=== PATIENT | male | born 1950 | race Caucasian/White ===

== ENCOUNTER → 2017-09-25 | Outpatient (CLI) | payer MEDICARE ==
[~2017-09-25] MED LIST: CYAN500; FINA5; FISH OIL 1,0001 EAC2; IRBHYD150 PO; Levitra20 MG PO; MAGCHL64ER; MELA3; METO50ER PO; Saw Palmetto160 MG; TAMS.4ER; VITAMIN D5000 UNIT
[2017-09-25 14:45] LABS: Bilirubin, Urine Neg (Neg); Blood, Urine Neg (Neg); Glucose Qualitative, Urine Neg (Neg); Ketones, Urine Neg (Neg); Leukocyte Esterase, Urine 1+ (Neg); Nitrite, Urine Pos (Neg); Protein, Urine Neg (Neg); Specific Gravity, Urine 1.015 (1.003-1.022); Urobilinogen, Urine NORM (Normal)
[2017-09-25 15:02] LABS: Amorphous Heavy (0-Heavy); Appearance, Urine Hazy (Clear); Bacteria Many /hpf; Color, Urine Yellow (P-Yellow); Red Blood Cells, Urine Not Seen /hpf (0-2); Squamous Epithelial Cells Few /hpf (Few)
== END | disposition home or self-care (01) ==
LOC: LAB 14:21
PROVIDERS: Urology
DX: N39.0 Urinary tract infection, site not specified (principal); N30.20 Other chronic cystitis without hematuria
CPT/HCPCS: 81001; 87077; 87086; 87186

== ENCOUNTER 2017-12-21 07:01 | Day surgery (SDC) | payer MEDICARE ==
[~2017-12-21] VITALS: Ht 185.4 cm; Wt 103.5 kg
[~2017-12-21 07:01] MED LIST changes: -CYAN500; -FINA5; -FISH OIL 1,0001 EAC2; -MAGCHL64ER; -MELA3; -Saw Palmetto160 MG; -TAMS.4ER; -VITAMIN D5000 UNIT
[2017-12-21] MEDS ORDERED: FINA5 (07:36)
[2017-12-21] MEDS ORDERED: TAMS.4ER (07:36)
[2017-12-21] MEDS ORDERED: MAGCHL64ER (07:37)
[2017-12-21] MEDS ORDERED: Saw Palmetto160 MG (07:38)
[2017-12-21] MEDS ORDERED: VITAMIN D5000 UNIT (07:38)
[2017-12-21] MEDS ORDERED: MELA3 (07:38)
[2017-12-21] MEDS ORDERED: FISH OIL 1,0001 EAC2 (07:38)
[2017-12-21] MEDS ORDERED: CYAN500 (07:38)
== END 2017-12-21 09:07 | disposition home or self-care (01) ==
LOC: ORSCSDS 07:01
PROVIDERS: Surgery
PROC: 0DJD8ZZ Inspection of Lower Intestinal Tract, Via Natural or Artificial Opening Endoscopic (ICD-10-PCS; principal; 2017-12-21 08:00)
PROC: 0DB68ZX Excision of Stomach, Via Natural or Artificial Opening Endoscopic, Diagnostic (ICD-10-PCS; principal; 2017-12-21 08:00)
PROC: 0DB48ZX Excision of Esophagogastric Junction, Via Natural or Artificial Opening Endoscopic, Diagnostic (ICD-10-PCS; principal; 2017-12-21 08:00)
DX: K21.9 Gastro-esophageal reflux disease without esophagitis (principal); K31.7 Polyp of stomach and duodenum; Z86.010 Personal history of colon polyps; K57.30 Diverticulosis of large intestine without perforation or abscess without bleeding; Z80.0 Family history of malignant neoplasm of digestive organs; Z79.899 Other long term (current) drug therapy
CPT/HCPCS: 88305; 88341; 88342; J0330; J1980; J2405; J7120

== ENCOUNTER → 2021-10-12 | Outpatient (CLI) | payer MEDICARE ==
[~2021-10-12] MED LIST changes: +CYAN500; +FINA5; +FISH OIL 1,0001 EAC2; +MAGCHL64ER; +MELA3; +Saw Palmetto160 MG; +TAMS.4ER; +VITAMIN D5000 UNIT
[2021-10-12 14:23] LABS: Source, Urine Clean Catch
[2021-10-12 18:54] LABS: Bilirubin, Urine Neg (Neg); Blood, Urine 2+ (Neg); Glucose Qualitative, Urine Neg (Neg); Ketones, Urine Neg (Neg); Leukocyte Esterase, Urine 3+ (Neg); Nitrite, Urine Pos (Neg); Protein, Urine 2+ (Neg); Specific Gravity, Urine 1.025 (1.003-1.022); Urobilinogen, Urine NORM (Normal)
[2021-10-12 19:05] LABS: Appearance, Urine Hazy (Clear); Color, Urine Amber (P-Yellow)
[2021-10-12 19:06] LABS: Amorphous Light (0-Heavy); Bacteria Many /hpf; Squamous Epithelial Cells Few /hpf (Few)
== END ==
LOC: LAB SHORT 14:04
PROVIDERS: Urology
DX: N39.0 Urinary tract infection, site not specified (principal)
CPT/HCPCS: 81001

== ENCOUNTER 2021-12-30 01:04 | Day surgery (SDC) | payer MEDICARE | END 2021-12-30 16:08 | disposition home or self-care (01) | LOC: ATC 01:04 | DX: N41.1 Chronic prostatitis (principal) | CPT/HCPCS: 96374; J0696 ==

== ENCOUNTER 2022-01-01 15:55 | Day surgery (SDC) | payer MEDICARE ==
[2022-01-04] MEDS ORDERED: CEFTRIAXONE2 G1 IV (16:41)
== END 2022-01-01 16:05 | disposition home or self-care (01) ==
LOC: ATC 15:55
DX: N41.1 Chronic prostatitis (principal); I10 Essential (primary) hypertension
CPT/HCPCS: 96374; J0696

== ENCOUNTER 2022-01-02 15:52 | Day surgery (SDC) | payer MEDICARE | END 2022-01-02 16:02 | disposition home or self-care (01) | LOC: ATC 15:52 | DX: N41.1 Chronic prostatitis (principal) | CPT/HCPCS: J0696 ==

== ENCOUNTER 2022-01-03 00:49 | Day surgery (SDC) | payer MEDICARE ==
[2022-01-04] MEDS ORDERED: CEFTRIAXONE2 G1 IV (16:41)
== END 2022-01-03 16:07 | disposition home or self-care (01) ==
LOC: ATC 00:49
DX: N41.1 Chronic prostatitis (principal); I10 Essential (primary) hypertension
CPT/HCPCS: 96374; J0696

== ENCOUNTER 2022-01-05 03:56 | Day surgery (SDC) | payer MEDICARE ==
[~2022-01-05 03:56] MED LIST changes: +CEFTRIAXONE2 G1 IV
== END 2022-01-05 16:05 | disposition home or self-care (01) ==
LOC: ATC 03:56
DX: N41.1 Chronic prostatitis (principal); I10 Essential (primary) hypertension; Z85.820 Personal history of malignant melanoma of skin; Z79.899 Other long term (current) drug therapy
CPT/HCPCS: 96374; J0696

== ENCOUNTER 2022-01-06 01:38 | Day surgery (SDC) | payer MEDICARE | END 2022-01-06 16:05 | disposition home or self-care (01) | LOC: ATC 01:38 | DX: N41.1 Chronic prostatitis (principal); I10 Essential (primary) hypertension; Z87.440 Personal history of urinary (tract) infections; Z85.820 Personal history of malignant melanoma of skin | CPT/HCPCS: 96374; J0696 ==

== ENCOUNTER 2022-01-07 01:03 | Day surgery (SDC) | payer MEDICARE | END 2022-01-07 16:13 | disposition home or self-care (01) | LOC: ATC 01:03 | DX: N41.1 Chronic prostatitis (principal); I10 Essential (primary) hypertension | CPT/HCPCS: 96374; J0696 ==

== ENCOUNTER 2022-01-08 15:48 | Day surgery (SDC) | payer MEDICARE | END 2022-01-08 16:00 | disposition home or self-care (01) | LOC: ATC 15:48 | DX: N41.1 Chronic prostatitis (principal); I10 Essential (primary) hypertension; Z79.899 Other long term (current) drug therapy | CPT/HCPCS: 96374; J0696 ==

== ENCOUNTER 2022-01-09 15:54 | Day surgery (SDC) | payer MEDICARE | END 2022-01-09 16:04 | disposition home or self-care (01) | LOC: ATC 15:54 | DX: N41.1 Chronic prostatitis (principal); I10 Essential (primary) hypertension; Z79.899 Other long term (current) drug therapy | CPT/HCPCS: 96374; J0696 ==

== ENCOUNTER 2022-01-10 01:10 | Day surgery (SDC) | payer MEDICARE ==
[2022-01-10 16:32] LABS: BASOPHILS ABSOLUTE AUTO 0.04 K/mm3 (0.00-0.23); BASOPHILS PERCENT AUTO 1 % (0-2); EOSINOPHILS ABSOLUTE AUTO 0.08 K/mm3 (0.00-0.68); EOSINOPHILS PERCENT AUTO 1 % (0-6); Hematocrit 39.6 % (37.0-53.0); Hemoglobin 14.1 g/dL (13.5-17.5); IMMATURE GRAN ABSOLUTE AUTO 0.02 K/mm3 (0.00-0.10); IMMATURE GRAN PERCENT AUTO 0 % (0-1); LYMPHOCYTES ABSOLUTE AUTO 1.44 K/mm3 (0.84-5.20); LYMPHOCYTES PERCENT AUTO 20 % (21-46); MONOCYTES ABSOLUTE AUTO 0.75 K/mm3 (0.16-1.47); MONOCYTES PERCENT AUTO 10 % (4-13); Mean Corpuscular HGB 33.7 pg (26.0-34.0); Mean Corpuscular HGB Conc 35.6 g/dL (31.5-36.5); Mean Corpuscular Volume 95 fL (80-100); Mean Platelet Volume 9.8 fL (9.1-12.4); NEUTROPHILS PERCENT AUTO 68 % (41-73); Platelet Count 161 K/mm3 (150-400); RDW Coefficient Variation 12.6 % (11.7-14.2); RDW Standard Deviation 43.8 fL (35.1-46.3); Red Blood Cell Count 4.19 M/mm3 (4.30-5.90); White Blood Cell Count 7.33 K/mm3 (4.00-11.30)
[2022-01-10 16:49] LABS: C-REACTIVE PROTEIN, EXT RANGE 0.48 mg/dL (0.000-0.300)
[2022-01-10 16:50] LABS: Albumin, Blood 3.6 g/dL (3.4-5.0); Albumin/Globulin Ratio 1.1 (0.8-1.8); Bilirubin, Total 0.8 mg/dL (0.1-1.0); Calcium, Blood 8.8 mg/dL (8.5-10.1); Creatinine, Blood 0.8 mg/dL (0.60-1.20); Globulin, Blood 3.4 g/dL (2.2-4.0); Potassium, Blood 3.4 mmol/L (3.5-5.5)
--- NOTE | 2022-01-10 17:22 | NUR ---
LAB RESULTS FROM TODAY FAXED TO DR. VOGT'S OFFICE. PT HAS AN APPOINTMENT WITH DR. VOGT TOMORROW MORNING.
== END 2022-01-10 16:14 | disposition home or self-care (01) ==
LOC: ATC 01:10
PROVIDERS: Internal Medicine Infectious Disease
DX: N41.1 Chronic prostatitis (principal); I10 Essential (primary) hypertension; N40.0 Benign prostatic hyperplasia without lower urinary tract symptoms; Z85.820 Personal history of malignant melanoma of skin; Z87.440 Personal history of urinary (tract) infections
CPT/HCPCS: 80053; 85025; 85651; 86140; J0696

== ENCOUNTER 2022-01-11 15:21 | Day surgery (SDC) | payer MEDICARE | END 2022-01-11 16:08 | disposition home or self-care (01) | LOC: ATC 15:21 | DX: N41.1 Chronic prostatitis (principal); I10 Essential (primary) hypertension; Z79.899 Other long term (current) drug therapy | CPT/HCPCS: 96374; J0696 ==

== ENCOUNTER 2022-01-12 00:26 | Day surgery (SDC) | payer MEDICARE | END 2022-01-12 16:10 | disposition home or self-care (01) | LOC: ATC 00:26 | DX: N41.1 Chronic prostatitis (principal); I10 Essential (primary) hypertension; Z79.899 Other long term (current) drug therapy | CPT/HCPCS: 96374; J0696 ==

== ENCOUNTER 2022-01-13 01:07 | Day surgery (SDC) | payer MEDICARE | END 2022-01-13 16:10 | disposition home or self-care (01) | LOC: ATC 01:07 | DX: N41.1 Chronic prostatitis (principal); I10 Essential (primary) hypertension; Z79.899 Other long term (current) drug therapy | CPT/HCPCS: 96374; J0696 ==

== ENCOUNTER 2022-01-14 00:22 | Day surgery (SDC) | payer MEDICARE | END 2022-01-14 17:02 | disposition home or self-care (01) | LOC: ATC 00:22 | DX: N41.1 Chronic prostatitis (principal) | CPT/HCPCS: J0696 ==

== ENCOUNTER 2022-01-15 15:56 | Day surgery (SDC) | payer MEDICARE | END 2022-01-15 16:10 | disposition home or self-care (01) | LOC: ATC 15:56 | DX: N41.1 Chronic prostatitis (principal) | CPT/HCPCS: J0696 ==

== ENCOUNTER 2022-01-17 02:28 | Day surgery (SDC) | payer MEDICARE | END 2022-01-17 16:13 | disposition home or self-care (01) | LOC: ATC 02:28 | DX: N41.1 Chronic prostatitis (principal); I10 Essential (primary) hypertension; N40.1 Benign prostatic hyperplasia with lower urinary tract symptoms; Z85.820 Personal history of malignant melanoma of skin | CPT/HCPCS: J0696 ==

== ENCOUNTER 2022-01-18 04:48 | Day surgery (SDC) | payer MEDICARE ==
[2022-01-18 16:27] LABS: BASOPHILS ABSOLUTE AUTO 0.06 K/mm3 (0.00-0.23); BASOPHILS PERCENT AUTO 1 % (0-2); EOSINOPHILS ABSOLUTE AUTO 0.17 K/mm3 (0.00-0.68); EOSINOPHILS PERCENT AUTO 3 % (0-6); Hematocrit 40.4 % (37.0-53.0); Hemoglobin 13.8 g/dL (13.5-17.5); IMMATURE GRAN ABSOLUTE AUTO 0.02 K/mm3 (0.00-0.10); IMMATURE GRAN PERCENT AUTO 0 % (0-1); LYMPHOCYTES ABSOLUTE AUTO 1.86 K/mm3 (0.84-5.20); LYMPHOCYTES PERCENT AUTO 36 % (21-46); MONOCYTES ABSOLUTE AUTO 0.55 K/mm3 (0.16-1.47); MONOCYTES PERCENT AUTO 11 % (4-13); Mean Corpuscular HGB 32.9 pg (26.0-34.0); Mean Corpuscular HGB Conc 34.2 g/dL (31.5-36.5); Mean Corpuscular Volume 96 fL (80-100); Mean Platelet Volume 9.5 fL (9.1-12.4); NEUTROPHILS ABSOLUTE AUTO 2.49 K/mm3 (1.96-9.15); NEUTROPHILS PERCENT AUTO 48 % (41-73); Platelet Count 218 K/mm3 (150-400); RDW Coefficient Variation 12.7 % (11.7-14.2); White Blood Cell Count 5.15 K/mm3 (4.00-11.30)
[2022-01-18 16:43] LABS: C-REACTIVE PROTEIN, EXT RANGE <0.290 mg/dL (0.000-0.300)
[2022-01-18 16:46] LABS: Alanine Aminotransfer (ALT/SGP 44 U/L (12-78); Albumin, Blood 3.7 g/dL (3.4-5.0); Alk Phos 72 U/L (50-136); Anion Gap 7 mmol/L (6-16); Aspartate Aminotrans (AST/SGOT 18 U/L (12-37); Bilirubin, Total 0.6 mg/dL (0.1-1.0); Blood Urea Nitrogen 23 mg/dL (8-24); Bun/Creatinine Ratio 26.4 (12.0-20.0); CO2, Blood 27 mmol/L (21-32); Chloride, Blood 107 mmol/L (98-108); Creatinine, Blood 0.87 mg/dL (0.60-1.20); Globulin, Blood 3.6 g/dL (2.2-4.0); Glomerular Filtration Rate 91 (60-); Glucose, Blood 130 mg/dL (70-99); Potassium, Blood 3.7 mmol/L (3.5-5.5); Sodium, Blood 141 mmol/L (136-145); Total Protein, Blood 7.3 g/dL (6.4-8.2)
== END 2022-01-18 16:35 | disposition home or self-care (01) ==
LOC: ATC 04:48
PROVIDERS: Internal Medicine Infectious Disease
DX: N41.1 Chronic prostatitis (principal); I10 Essential (primary) hypertension
CPT/HCPCS: 80053; 85025; 85651; 86140; J0696

== ENCOUNTER 2022-01-19 01:12 | Day surgery (SDC) | payer MEDICARE | END 2022-01-19 16:06 | disposition home or self-care (01) | LOC: ATC 01:12 | DX: N41.1 Chronic prostatitis (principal); I10 Essential (primary) hypertension; Z79.899 Other long term (current) drug therapy | CPT/HCPCS: 96374; J0696 ==

== ENCOUNTER 2022-01-20 00:10 | Day surgery (SDC) | payer MEDICARE | END 2022-01-20 16:10 | disposition home or self-care (01) | LOC: ATC 00:10 | DX: N41.1 Chronic prostatitis (principal) | CPT/HCPCS: 96374; J0696 ==

== ENCOUNTER 2022-01-22 15:53 | Day surgery (SDC) | payer MEDICARE | END 2022-01-22 16:14 | disposition home or self-care (01) | LOC: ATC 15:53 | DX: N41.1 Chronic prostatitis (principal) | CPT/HCPCS: 96374; J0696 ==

== ENCOUNTER 2022-01-23 15:50 | Day surgery (SDC) | payer MEDICARE | END 2022-01-23 16:06 | disposition home or self-care (01) | LOC: ATC 15:50 | DX: N41.1 Chronic prostatitis (principal); N39.0 Urinary tract infection, site not specified; I10 Essential (primary) hypertension | CPT/HCPCS: 96374; J0696 ==

== ENCOUNTER 2022-01-24 14:28 | Day surgery (SDC) | payer MEDICARE | END 2022-01-24 14:40 | disposition home or self-care (01) | LOC: ATC 14:28 | DX: N41.1 Chronic prostatitis (principal); I10 Essential (primary) hypertension | CPT/HCPCS: 96374; J0696 ==

== ENCOUNTER 2022-01-26 15:47 | Day surgery (SDC) | payer MEDICARE | END 2022-01-26 15:56 | disposition home or self-care (01) | LOC: ATC 15:47 | DX: N41.1 Chronic prostatitis (principal); I10 Essential (primary) hypertension | CPT/HCPCS: 96374; J0696 ==

== ENCOUNTER 2022-01-27 15:58 | Day surgery (SDC) | payer MEDICARE | END 2022-01-27 16:10 | disposition home or self-care (01) | LOC: ATC 15:58 | DX: N41.1 Chronic prostatitis (principal); I10 Essential (primary) hypertension; Z85.820 Personal history of malignant melanoma of skin | CPT/HCPCS: 96374; J0696 ==

== ENCOUNTER 2022-01-28 00:22 | Day surgery (SDC) | payer MEDICARE | END 2022-01-28 16:08 | disposition home or self-care (01) | LOC: ATC 00:22 | DX: N41.1 Chronic prostatitis (principal) | CPT/HCPCS: J0696 ==

== ENCOUNTER 2022-01-29 15:58 | Day surgery (SDC) | payer MEDICARE | END 2022-01-29 16:11 | disposition home or self-care (01) | LOC: ATC 15:58 | DX: N41.1 Chronic prostatitis (principal) | CPT/HCPCS: 96374; J0696 ==

== ENCOUNTER 2022-01-30 | Day surgery (SDC) | payer MEDICARE | END 2022-01-30 16:10 | disposition home or self-care (01) | LOC: ATC | DX: N41.1 Chronic prostatitis (principal) | CPT/HCPCS: 96374; J0696 ==

== ENCOUNTER 2022-01-31 00:24 | Day surgery (SDC) | payer MEDICARE | END 2022-01-31 16:21 | disposition home or self-care (01) | LOC: ATC 00:24 | DX: N41.1 Chronic prostatitis (principal); I10 Essential (primary) hypertension; N40.0 Benign prostatic hyperplasia without lower urinary tract symptoms; Z85.820 Personal history of malignant melanoma of skin; Z87.440 Personal history of urinary (tract) infections | CPT/HCPCS: 96374; J0696 ==

== ENCOUNTER 2022-02-01 04:41 | Day surgery (SDC) | payer MEDICARE ==
[2022-02-01 16:33] LABS: BASOPHILS ABSOLUTE AUTO 0.03 K/mm3 (0.00-0.23); BASOPHILS PERCENT AUTO 1 % (0-2); EOSINOPHILS ABSOLUTE AUTO 0.07 K/mm3 (0.00-0.68); EOSINOPHILS PERCENT AUTO 1 % (0-6); Hematocrit 40.8 % (37.0-53.0); Hemoglobin 14.1 g/dL (13.5-17.5); IMMATURE GRAN ABSOLUTE AUTO 0.01 K/mm3 (0.00-0.10); IMMATURE GRAN PERCENT AUTO 0 % (0-1); LYMPHOCYTES ABSOLUTE AUTO 1.96 K/mm3 (0.84-5.20); LYMPHOCYTES PERCENT AUTO 38 % (21-46); MONOCYTES ABSOLUTE AUTO 0.61 K/mm3 (0.16-1.47); MONOCYTES PERCENT AUTO 12 % (4-13); Mean Corpuscular HGB 33.3 pg (26.0-34.0); Mean Corpuscular HGB Conc 34.6 g/dL (31.5-36.5); Mean Corpuscular Volume 96 fL (80-100); Mean Platelet Volume 9.8 fL (9.1-12.4); NEUTROPHILS ABSOLUTE AUTO 2.54 K/mm3 (1.96-9.15); NEUTROPHILS PERCENT AUTO 49 % (41-73); Platelet Count 194 K/mm3 (150-400); RDW Coefficient Variation 12.9 % (11.7-14.2); RDW Standard Deviation 45.7 fL (35.1-46.3); Red Blood Cell Count 4.24 M/mm3 (4.30-5.90); White Blood Cell Count 5.22 K/mm3 (4.00-11.30)
[2022-02-01 16:46] LABS: C-REACTIVE PROTEIN, EXT RANGE <0.290 mg/dL (0.000-0.300)
[2022-02-01 16:48] LABS: Alanine Aminotransfer (ALT/SGP 38 U/L (12-78); Albumin, Blood 3.7 g/dL (3.4-5.0); Albumin/Globulin Ratio 1.1 (0.8-1.8); Alk Phos 73 U/L (50-136); Anion Gap 3 mmol/L (6-16); Aspartate Aminotrans (AST/SGOT 29 U/L (12-37); Bilirubin, Total 0.7 mg/dL (0.1-1.0); Blood Urea Nitrogen 21 mg/dL (8-24); CO2, Blood 28 mmol/L (21-32); Chloride, Blood 108 mmol/L (98-108); Creatinine, Blood 0.81 mg/dL (0.60-1.20); Globulin, Blood 3.4 g/dL (2.2-4.0); Glomerular Filtration Rate 93 (60-); Glucose, Blood 112 mg/dL (70-99); Potassium, Blood 3.8 mmol/L (3.5-5.5); Sodium, Blood 139 mmol/L (136-145); Total Protein, Blood 7.1 g/dL (6.4-8.2)
== END 2022-02-01 16:35 | disposition home or self-care (01) ==
LOC: ATC 04:41
PROVIDERS: Internal Medicine Infectious Disease
DX: N41.1 Chronic prostatitis (principal); I10 Essential (primary) hypertension
CPT/HCPCS: 80053; 85025; 85651; 86140; 96374; J0696

== ENCOUNTER 2022-02-02 03:31 | Day surgery (SDC) | payer MEDICARE | END 2022-02-02 16:23 | disposition home or self-care (01) | LOC: ATC 03:31 | DX: N41.1 Chronic prostatitis (principal) | CPT/HCPCS: 96374; J0696 ==

== ENCOUNTER 2022-02-03 00:50 | Day surgery (SDC) | payer MEDICARE | END 2022-02-03 16:10 | disposition home or self-care (01) | LOC: ATC 00:50 | DX: N41.1 Chronic prostatitis (principal) | CPT/HCPCS: 96374; J0696 ==

== ENCOUNTER 2022-02-04 02:26 | Day surgery (SDC) | payer MEDICARE | END 2022-02-04 16:08 | disposition home or self-care (01) | LOC: ATC 02:26 | DX: N41.1 Chronic prostatitis (principal); I10 Essential (primary) hypertension | CPT/HCPCS: 96374; J0696 ==

== ENCOUNTER 2022-02-05 15:58 | Day surgery (SDC) | payer MEDICARE | END 2022-02-05 16:10 | disposition home or self-care (01) | LOC: ATC 15:58 | DX: N41.1 Chronic prostatitis (principal); I10 Essential (primary) hypertension | CPT/HCPCS: 96374; J0696 ==

== ENCOUNTER 2022-02-06 00:51 | Day surgery (SDC) | payer MEDICARE | END 2022-02-06 16:11 | disposition home or self-care (01) | LOC: ATC 00:51 | DX: N41.1 Chronic prostatitis (principal); I10 Essential (primary) hypertension; N39.0 Urinary tract infection, site not specified | CPT/HCPCS: 96374; J0696 ==

== ENCOUNTER 2022-06-15 17:22 | Inpatient (IN) | payer MEDICARE ==
[~2022-06-15] VITALS: Ht 185.4 cm; Wt 102.1 kg
[~2022-06-15 17:22] MED LIST changes: -FINA5; +FINA5 PO; -FISH OIL 1,0001 EAC2; +IRBESARTAN-HCT1 EAC3 PO; -IRBHYD150 PO; -MELA3; +MELA3 PO; +OMEGA-3 FISH O1 EAC6 PO; -TAMS.4ER; +TAMS.4ER PO
[2022-06-15] MEDS ORDERED: BANOPHEN50 M1 PO (19:36)
[2022-06-15] MEDS ORDERED: Vitamin B-12100 MCG PO (19:37)
[2022-06-15] MEDS ORDERED: LOPE2C PO (19:38)
[2022-06-15] MEDS ORDERED: METO50ER PO ×2 (19:39)
[2022-06-15] MEDS ORDERED: TRIM100 PO (19:41)
[2022-06-15] MEDS ORDERED: PROC5 PO (19:41)
[2022-06-15] MEDS ORDERED: OPDIVO40 MG/4 ML IV (19:42)
[2022-06-15] MEDS ORDERED: YERVOY50 MG/101 IV (19:42)
[2022-06-15 20:55] LABS: Hematocrit 37.5 % (37.0-53.0); Mean Corpuscular HGB 32.8 pg (26.0-34.0); Mean Corpuscular HGB Conc 34.7 g/dL (31.5-36.5); Mean Corpuscular Volume 95 fL (80-100); Mean Platelet Volume 9.3 fL (9.1-12.4); Platelet Count 155 K/mm3 (150-400); RDW Coefficient Variation 13.2 % (11.7-14.2); RDW Standard Deviation 46.2 fL (35.1-46.3); Red Blood Cell Count 3.96 M/mm3 (4.30-5.90); White Blood Cell Count 5.96 K/mm3 (4.00-11.30)
[2022-06-15 21:08] LABS: Albumin, Blood 2.8 g/dL (3.4-5.0); Albumin/Globulin Ratio 0.7 (0.8-1.8); Bun/Creatinine Ratio 27.7 (12.0-20.0); C-REACTIVE PROTEIN, EXT RANGE 10.9 mg/dL (0.000-0.300); Calcium, Blood 8.8 mg/dL (8.5-10.1); Creatinine, Blood 0.9 mg/dL (0.60-1.20); Globulin, Blood 3.8 g/dL (2.2-4.0); Potassium, Blood 3.9 mmol/L (3.5-5.5); Total Protein, Blood 6.6 g/dL (6.4-8.2)
[2022-06-15 21:21] LABS: BASOPHILS PERCENT MAN 0 % (0-2); EOSINOPHILS ABSOLUTE MAN 0.05 K/mm3 (0.00-0.68); EOSINOPHILS PERCENT MAN 1 % (0-6); LYMPHOCYTES % ATYPICAL MANUAL 3 % (0-0); LYMPHOCYTES ABSOLUTE MAN 1.43 K/mm3 (0.84-5.20); LYMPHOCYTES PERCENT MAN 21 % (21-46); MONOCYTES ABSOLUTE MAN 0.23 K/mm3 (0.16-1.47); MONOCYTES PERCENT MAN 4 % (4-13); NEUTROPHILS ABSOLUTE MAN 4.23 K/mm3 (1.96-9.15); SEG NEUTROPHILS PERCENT MAN 71 % (41-73); TOTAL CELLS COUNTED 100
[2022-06-15] MEDS ORDERED: Acetaminophen650 M1 PO (23:40)
[2022-06-15] MEDS ORDERED: IBUP400 PO (23:40)
[2022-06-16 01:44] LABS: BASOPHILS ABSOLUTE AUTO 0.02 K/mm3 (0.00-0.23); BASOPHILS PERCENT AUTO 0 % (0-2); EOSINOPHILS ABSOLUTE AUTO 0.07 K/mm3 (0.00-0.68); EOSINOPHILS PERCENT AUTO 1 % (0-6); Hematocrit 35.2 % (37.0-53.0); Hemoglobin 12.5 g/dL (13.5-17.5); IMMATURE GRAN ABSOLUTE AUTO 0.07 K/mm3 (0.00-0.10); IMMATURE GRAN PERCENT AUTO 1 % (0-1); LYMPHOCYTES ABSOLUTE AUTO 1.38 K/mm3 (0.84-5.20); LYMPHOCYTES PERCENT AUTO 22 % (21-46); MONOCYTES ABSOLUTE AUTO 0.27 K/mm3 (0.16-1.47); MONOCYTES PERCENT AUTO 4 % (4-13); Mean Corpuscular HGB Conc 35.5 g/dL (31.5-36.5); Mean Corpuscular Volume 93 fL (80-100); Mean Platelet Volume 9.3 fL (9.1-12.4); NEUTROPHILS ABSOLUTE AUTO 4.41 K/mm3 (1.96-9.15); NEUTROPHILS PERCENT AUTO 71 % (41-73); Platelet Count 159 K/mm3 (150-400); RDW Coefficient Variation 13.1 % (11.7-14.2); RDW Standard Deviation 44.7 fL (35.1-46.3); Red Blood Cell Count 3.79 M/mm3 (4.30-5.90); White Blood Cell Count 6.22 K/mm3 (4.00-11.30)
[2022-06-16 02:03] LABS: Albumin, Blood 2.6 g/dL (3.4-5.0); Albumin/Globulin Ratio 0.7 (0.8-1.8); Bilirubin, Total 1.1 mg/dL (0.1-1.0); Bun/Creatinine Ratio 34.8 (12.0-20.0); CPK Creatine Kinase 54 U/L (39-308); Calcium, Blood 8.2 mg/dL (8.5-10.1); Creatinine, Blood 0.75 mg/dL (0.60-1.20); Globulin, Blood 3.7 g/dL (2.2-4.0); Potassium, Blood 3.6 mmol/L (3.5-5.5); Total Protein, Blood 6.3 g/dL (6.4-8.2)
--- NOTE | 2022-06-16 04:35 | NUR ---
Patient resting in bed at this time, movement very painful due to blisters, pleasant and cooperative.
[2022-06-16] MEDS ORDERED: TRIA15CR3 TOP (13:26)
--- NOTE | 2022-06-16 15:01 | NUR ---
DISCHARGE SUMMARY PATIENT IS ALERT AND ORIENTED. PATIENT HAS NOT COMPLAINED OF PAIN, NAUSEA, SOB OR VOMITTING THIS SHIFT. PATIENT WAS ADMITTED FOR HYPERSENSITIVITY TO MEDICATION. PATIENT REPORTS RASH AND BLISTERS SUBSIDING. PATIENT HAS HAD NO ACUTE EVENTS THIS SHIFT. VITAL SIGNS REVIEWED. PATIENT IS BEING DISCHARGED HOME. PATIENTS IS TRANSPORTING PATIENT HOME.
== END 2022-06-16 15:58 | disposition home or self-care (01) | DRG 607 ==
LOC: ER 17:22 → MEDS 17:23
PROVIDERS: Student in an Organized Health Care Education/Training Program; ADMIT Internal Medicine
DX: L27.0 Generalized skin eruption due to drugs and medicaments taken internally (principal); C34.90 Malignant neoplasm of unspecified part of unspecified bronchus or lung; Z28.21 Immunization not carried out because of patient refusal; T45.1X5A Adverse effect of antineoplastic and immunosuppressive drugs, initial encounter; I10 Essential (primary) hypertension; N40.0 Benign prostatic hyperplasia without lower urinary tract symptoms; Z98.890 Other specified postprocedural states; Z79.899 Other long term (current) drug therapy; X58.XXXA Exposure to other specified factors, initial encounter
CPT/HCPCS: 36415; 71045; 80053; 82550; 85025; 85651; 86140; 87070; 87075; 87205; A9270; J1650; J2930

== ENCOUNTER → 2022-08-02 | Outpatient (CLI) | payer MEDICARE ==
[~2022-08-02] MED LIST changes: +Acetaminophen650 M1 PO; +BANOPHEN50 M1 PO; +IBUP400 PO; +LOPE2C PO; +OPDIVO40 MG/4 ML IV; +PROC5 PO; +TRIA15CR3 TOP; +TRIM100 PO; +Vitamin B-12100 MCG PO; +YERVOY50 MG/101 IV
== END | disposition home or self-care (01) ==
LOC: LAB SHORT 10:36
DX: N39.0 Urinary tract infection, site not specified (principal)
CPT/HCPCS: 87077; 87086; 87186

== ENCOUNTER → 2024-10-24 | Outpatient (CLI) | payer MEDICARE ==
[2024-10-24 16:48] LABS: BASOPHILS ABSOLUTE AUTO 0.02 K/mm3 (0.00-0.23); BASOPHILS PERCENT AUTO 0 % (0-2); EOSINOPHILS ABSOLUTE AUTO 0.04 K/mm3 (0.00-0.68); EOSINOPHILS PERCENT AUTO 0 % (0-6); Hemoglobin 9.6 g/dL (13.5-17.5); IMMATURE GRAN ABSOLUTE AUTO 0.04 K/mm3 (0.00-0.10); IMMATURE GRAN PERCENT AUTO 0 % (0-1); LYMPHOCYTES ABSOLUTE AUTO 2.03 K/mm3 (0.84-5.20); LYMPHOCYTES PERCENT AUTO 23 % (21-46); MONOCYTES ABSOLUTE AUTO 0.97 K/mm3 (0.16-1.47); MONOCYTES PERCENT AUTO 11 % (4-13); Mean Corpuscular HGB 27.7 pg (26.0-34.0); Mean Corpuscular Volume 90 fL (80-100); Mean Platelet Volume 9.1 fL (9.1-12.4); NEUTROPHILS ABSOLUTE AUTO 5.79 K/mm3 (1.96-9.15); NEUTROPHILS PERCENT AUTO 65 % (41-73); Platelet Count 374 K/mm3 (150-400); RDW Coefficient Variation 15.5 % (11.7-14.2); RDW Standard Deviation 50.4 fL (35.1-46.3); Red Blood Cell Count 3.46 M/mm3 (4.30-5.90); White Blood Cell Count 8.89 K/mm3 (4.00-11.30)
[2024-10-24 18:27] LABS: Albumin, Blood 2.3 g/dL (3.4-5.0); Albumin/Globulin Ratio 0.7 (0.8-1.8); Bilirubin, Total 0.3 mg/dL (0.1-1.0); Bun/Creatinine Ratio 23.6 (12.0-20.0); Calcium, Blood 8.1 mg/dL (8.5-10.1); Creatinine, Blood 0.76 mg/dL (0.60-1.20); Globulin, Blood 3.5 g/dL (2.2-4.0); Potassium, Blood 3.9 mmol/L (3.5-5.5); Total Protein, Blood 5.8 g/dL (6.4-8.2)
== END ==
LOC: LAB SHORT 15:33 → LAB 15:33
PROVIDERS: Internal Medicine
DX: C43.9 Malignant melanoma of skin, unspecified (principal); E61.1 Iron deficiency
CPT/HCPCS: 80053; 82728; 83540; 83550; 85025

== ENCOUNTER → 2024-11-21 | Outpatient (CLI) | payer MEDICARE ==
[2024-11-21 14:26] LABS: Albumin, Blood 2.2 g/dL (3.4-5.0); Albumin/Globulin Ratio 0.6 (0.8-1.8); Bilirubin, Total 0.3 mg/dL (0.1-1.0); Bun/Creatinine Ratio 23.8 (12.0-20.0); Calcium, Blood 8.3 mg/dL (8.5-10.1); Creatinine, Blood 0.8 mg/dL (0.60-1.20); Globulin, Blood 3.6 g/dL (2.2-4.0); Percent Saturation 23.8 % (20.0-50.0); Potassium, Blood 3.8 mmol/L (3.5-5.5); Total Protein, Blood 5.8 g/dL (6.4-8.2)
== END ==
LOC: LAB 10:08 → LAB SHORT 10:08
PROVIDERS: Internal Medicine
DX: D50.8 Other iron deficiency anemias (principal); N18.31 Chronic kidney disease, stage 3a
CPT/HCPCS: 80053; 82728; 83540; 83550

== ENCOUNTER → 2025-02-19 | Outpatient (CLI) | payer MEDICARE ==
[2025-02-19 11:17] LABS: Source, Urine Voided
[2025-02-19 11:23] LABS: Bilirubin, Urine 1+ (Neg); Color, Urine Amber (P-Yellow); Glucose Qualitative, Urine Neg (Normal); Ketones, Urine Neg (Neg); Leukocyte Esterase, Urine 3+ (Neg); Protein, Urine 1+ (Neg); Specific Gravity, Urine 1.030 (1.003-1.022); Urobilinogen, Urine 2+ (Normal)
[2025-02-19 11:24] LABS: Red Blood Cells, Urine TNTC /hpf (0-2); White Blood Cells, Urine TNTC /hpf (0-5); Yeast/Fungi Urine Many /hpf
== END | disposition home or self-care (01) ==
LOC: LAB 11:14 → LAB SHORT 11:14
PROVIDERS: Internal Medicine
DX: R41.82 Altered mental status, unspecified (principal); R35.0 Frequency of micturition
CPT/HCPCS: 81001; 87077; 87086; 87186

== ENCOUNTER → 2025-03-07 | Outpatient (CLI) | payer MEDICARE ==
[2025-03-08 10:33] LABS: Bilirubin, Urine Neg (Neg); Color, Urine Yellow (P-Yellow); Glucose Qualitative, Urine Neg (Neg); Ketones, Urine 1+ (Neg); Leukocyte Esterase, Urine 3+ (Neg); Protein, Urine 2+ (Neg); Specific Gravity, Urine 1.025 (1.003-1.022); Urobilinogen, Urine 2+ (Normal)
[2025-03-08 10:44] LABS: White Blood Cells, Urine TNTC /hpf (0-5)
== END ==
LOC: LAB SHORT 15:50 → LAB 15:50
PROVIDERS: Internal Medicine
DX: R35.0 Frequency of micturition (principal)
CPT/HCPCS: 81001; 87077; 87086; 87186

== ENCOUNTER → 2025-03-25 | Outpatient (CLI) | payer MEDICARE ==
[2025-03-25 11:39] LABS: Bilirubin, Urine 1+ (Neg); Color, Urine Amber (P-Yellow); Glucose Qualitative, Urine Neg (Normal); Ketones, Urine Neg (Neg); Leukocyte Esterase, Urine 2+ (Neg); Protein, Urine 1+ (Neg); Source, Urine Clean Catch; Specific Gravity, Urine 1.020 (1.003-1.022); Urobilinogen, Urine 1+ (Normal)
[2025-03-25 11:44] LABS: Red Blood Cells, Urine TNTC /hpf (0-2); White Blood Cells, Urine TNTC /hpf (0-5)
== END ==
LOC: LAB 11:35 → LAB SHORT 11:35
PROVIDERS: Internal Medicine
DX: R35.0 Frequency of micturition (principal)
CPT/HCPCS: 81001; 87077; 87086; 87186